=== PATIENT | female | born 1965 | race African-American/Black ===

== ENCOUNTER 2023-03-27 13:09 | Emergency (ER) | payer OTHER ==
[~2023-03-27] VITALS: Ht 154.9 cm; Wt 75.7 kg
[2023-03-27] MEDS ORDERED: METF-839 PO ×2 (13:19→15:38)
[2023-03-27] MEDS ORDERED: IBUP-1114 PO (13:19)
[2023-03-27 14:31] LABS: BASO % 0.5 % (0.0-1.0); EOS # 0.2 10^3/uL (0.0-0.5); EOS % 2.5 % (0.0-3.0); HEMATOCRIT 43.6 % (36.0-47.0); HEMOGLOBIN 13.4 g/dl (12.0-15.5); LYMPH # 3.3 10^3/uL (1.5-5.0); LYMPH % 37.2 % (24.0-44.0); MEAN CORPUSCULAR HEMOGLOBIN 25.3 pg (27.0-33.0); MEAN CORPUSCULAR HGB CONC 30.7 g/dl (32.0-36.5); MEAN CORPUSCULAR VOLUME 82.3 fl (80.0-96.0); MONO # 0.6 10^3/uL (0.0-0.8); MONO % 6.6 % (2.0-8.0); NEUTROPHILS # 4.7 10^3/uL (1.5-8.5); PLATELET COUNT, AUTOMATED 315 10^3/uL (150-450); WHITE BLOOD COUNT 8.8 10^3/uL (4.0-10.0)
[2023-03-27 14:38] LABS: ERYTHROCYTE SEDIMENTATION RATE 115 mm/hr (0-30)
[2023-03-27] MEDS ORDERED: ISOVUE-370 76% 100ML VIAL As Ordered ONE (16:13)
[2023-03-27] MEDS ORDERED: AMOX875T2 PO (17:29)
[2023-03-27 17:40] VITALS: BP 149/70; TEMP 97.4; O2SAT 99
== END 2023-03-27 17:42 | disposition home or self-care (01) ==
LOC: M ED 13:09
DX: K04.7 Periapical abscess without sinus (principal); E11.9 Type 2 diabetes mellitus without complications
CPT/HCPCS: 36415; 70487; 80047; 85025; 85652; 86140; 99284; Q9967

== ENCOUNTER 2023-03-31 08:33 | Emergency (ER) | payer OTHER ==
[~2023-03-31] VITALS: Ht 154.9 cm; Wt 73.9 kg
[~2023-03-31 08:33] MED LIST: AMOX875T2 PO; IBUP-1114 PO; METF-839 PO
[2023-03-31 13:02] LABS: BASO % 0.5 % (0.0-1.0); EOS # 0.3 10^3/uL (0.0-0.5); EOS % 3.9 % (0.0-3.0); HEMATOCRIT 42.6 % (36.0-47.0); HEMOGLOBIN 13.5 g/dl (12.0-15.5); LYMPH # 2.8 10^3/uL (1.5-5.0); MEAN CORPUSCULAR HEMOGLOBIN 25.9 pg (27.0-33.0); MEAN CORPUSCULAR HGB CONC 31.7 g/dl (32.0-36.5); MEAN CORPUSCULAR VOLUME 81.6 fl (80.0-96.0); MONO # 0.5 10^3/uL (0.0-0.8); MONO % 6.7 % (2.0-8.0); NEUTROPHILS # 4.4 10^3/uL (1.5-8.5); NEUTROPHILS % 54.7 % (36.0-66.0); PLATELET COUNT, AUTOMATED 342 10^3/uL (150-450); RED BLOOD COUNT 5.22 10^6/uL (4.00-5.40); WHITE BLOOD COUNT 8.1 10^3/uL (4.0-10.0)
[2023-03-31 14:40] VITALS: BP 149/77; TEMP 97.5; O2SAT 98
[2023-03-31 14:50] LABS: CHLAMYDIA DNA AMPLIFICATION NEGATIVE (NEGATIVE); GC DNA AMPLIFICATION NEGATIVE (NEGATIVE)
== END 2023-03-31 15:01 | disposition home or self-care (01) ==
LOC: M ED 08:33
DX: N21.1 Calculus in urethra (principal)

== ENCOUNTER 2023-09-30 18:40 | Emergency (ER) | payer OTHER ==
[~2023-09-30] VITALS: Ht 154.9 cm; Wt 71.9 kg
[2023-09-30] MEDS ORDERED: ESSETAB4 PO (19:04)
[2023-09-30] MEDS ORDERED: ROSU5TAB40 (19:04)
[2023-09-30] MEDS ORDERED: CINN500C15 PO (19:04)
[2023-09-30] MEDS ORDERED: TRIPCAP5 PO (19:04)
[2023-09-30 19:18] LABS: BASO # 0.1 10^3/uL (0.0-0.2); BASO % 0.9 % (0.0-1.0); EOS # 0.3 10^3/uL (0.0-0.5); EOS % 3.1 % (0.0-3.0); HEMATOCRIT 44.2 % (36.0-47.0); HEMOGLOBIN 14.1 g/dl (12.0-15.5); LYMPH # 4.3 10^3/uL (1.5-5.0); LYMPH % 46.9 % (24.0-44.0); MEAN CORPUSCULAR HEMOGLOBIN 26.3 pg (27.0-33.0); MEAN CORPUSCULAR HGB CONC 31.9 g/dl (32.0-36.5); MEAN CORPUSCULAR VOLUME 82.3 fl (80.0-96.0); MONO # 0.7 10^3/uL (0.0-0.8); MONO % 7.7 % (2.0-8.0); NEUTROPHILS # 3.8 10^3/uL (1.5-8.5); NEUTROPHILS % 41.2 % (36.0-66.0); PLATELET COUNT, AUTOMATED 281 10^3/uL (150-450); RED BLOOD COUNT 5.37 10^6/uL (4.00-5.40); WHITE BLOOD COUNT 9.1 10^3/uL (4.0-10.0)
[2023-09-30 19:30] LABS: INR 1.03; PARTIAL THROMBOPLASTIN TIME 25.6 SECONDS (24.8-34.2); PROTHROMBIN TIME 13.2 SECONDS (12.5-14.5)
[2023-09-30 19:46] LABS: CK-MB VALUE MASS 2.7 NG/ML (<3.6); LIPASE 33 U/L (12-53)
[2023-09-30 19:48] LABS: ALBUMIN 3.9 G/DL (3.2-5.2); ALKALINE PHOSPHATASE 78 U/L (46-116); ALT/SGPT 18 U/L (7.0-40); AST/SGOT 10 U/L (<34); BILIRUBIN,DIRECT 0.1 MG/DL (<0.4); BILIRUBIN,TOTAL 0.5 MG/DL (0.3-1.2); BLOOD UREA NITROGEN 19 MG/DL (9-23); CALCIUM LEVEL 9.9 MG/DL (8.5-10.1); CARBON DIOXIDE LEVEL 31 MMOL/L (20-31); CHLORIDE LEVEL 103 MMOL/L (98-107); CREATININE FOR GFR 0.61 MG/DL (0.55-1.30); GLOMERULAR FILTRATION RATE > 60.0 (>51); GLUCOSE, FASTING 141 MG/DL (60-100); POTASSIUM SERUM 4.5 MMOL/L (3.5-5.1); SODIUM LEVEL 140 MMOL/L (136-145); TOTAL PROTEIN 8.2 G/DL (5.7-8.2)
[2023-09-30 19:50] LABS: FREE T4 1.03 NG/DL (0.89-1.76); THYROID STIMULATING HORMONE 2.447 uIU/ML (0.55-4.78)
[2023-09-30 19:54] LABS: CPK CREATINE PHOSPHOKINASE 242 U/L (34-145); MB/CK RELATIVE INDEX 1.11 (< OR =4)
[2023-09-30 22:12] LABS: CK-MB VALUE MASS 2.7 NG/ML (<3.6)
[2023-09-30 22:14] LABS: MB/CK RELATIVE INDEX 1.19 (< OR =4)
[2023-10-01] MEDS: KETOROLAC 30 MG/ML 1ML VIAL IV ONE (00:30)
[2023-10-01] MEDS ORDERED: ISOVUE-370 76% 100ML VIAL As Ordered ONE (00:49)
[2023-10-01 01:44] VITALS: BP 140/76; TEMP 98.8; O2SAT 100
== END 2023-10-01 01:48 | disposition home or self-care (01) ==
LOC: M ED 18:40
DX: R07.9 Chest pain, unspecified (principal); E11.9 Type 2 diabetes mellitus without complications; E78.5 Hyperlipidemia, unspecified; R94.31 Abnormal electrocardiogram [ECG] [EKG]; I25.2 Old myocardial infarction; Z79.84 Long term (current) use of oral hypoglycemic drugs; Z79.810 Long term (current) use of selective estrogen receptor modulators (SERMs)
CPT/HCPCS: 71045; 71275; 80048; 80076; 82550; 82553; 83690; 83880; 84439; 84443; 84484; 85025; 85610; 85730; 93005; 93041; 94760; 96374; 99285; J1885; Q9967

== ENCOUNTER 2023-12-06 06:41 | Day surgery (SDC) | payer OTHER ==
[~2023-12-06] VITALS: Ht 154.9 cm; Wt 68.9 kg
[~2023-12-06 06:41] MED LIST changes: +CINN500C15 PO; +ESSETAB4 PO; +JARD1TAB3 PO; +ROSU5TAB40 PO; +TRIPCAP5 PO
[2023-12-06] MEDS ORDERED: propofoL 200 MG/20 ML VIAL As Ordered ONE (06:49)
[2023-12-06] MEDS: NS 1,000 ML IV ONE (07:13)
[2023-12-06 08:20] VITALS: BP 110/71; TEMP 96.6; O2SAT 98
== END 2023-12-06 08:29 | disposition home or self-care (01) ==
LOC: M OPP 06:41
PROVIDERS: ATTEND Internal Medicine Gastroenterology
DX: K64.8 Other hemorrhoids (principal); K57.30 Diverticulosis of large intestine without perforation or abscess without bleeding; K92.1 Melena; E11.9 Type 2 diabetes mellitus without complications; Z79.02 Long term (current) use of antithrombotics/antiplatelets

== ENCOUNTER 2023-12-19 23:43 | Emergency (ER) | payer OTHER ==
[~2023-12-19] VITALS: Ht 154.9 cm; Wt 72.2 kg
[2023-12-20 00:48] LABS: HEMATOCRIT 39.4 % (36.0-47.0); HEMOGLOBIN 12.5 g/dl (12.0-15.5); MEAN CORPUSCULAR HEMOGLOBIN 26.5 pg (27.0-33.0); MEAN CORPUSCULAR HGB CONC 31.7 g/dl (32.0-36.5); MEAN CORPUSCULAR VOLUME 83.7 fl (80.0-96.0); PLATELET COUNT, AUTOMATED 190 10^3/uL (150-450); RED BLOOD COUNT 4.71 10^6/uL (4.00-5.40); WHITE BLOOD COUNT 5.4 10^3/uL (4.0-10.0)
[2023-12-20] MEDS: CALCIUM CARBONATE 500 MG CHEW U/D PO ONE (00:51)
[2023-12-20 01:12] LABS: LIPASE 46 U/L (12-53)
[2023-12-20 01:13] LABS: CPK CREATINE PHOSPHOKINASE 251 U/L (34-145)
[2023-12-20 01:14] LABS: ALBUMIN 3.6 G/DL (3.2-5.2); ALKALINE PHOSPHATASE 67 U/L (46-116); ALT/SGPT 19 U/L (7.0-40); AST/SGOT 15 U/L (<34); BILIRUBIN,DIRECT < 0.1 MG/DL (<0.4); BILIRUBIN,TOTAL 0.3 MG/DL (0.3-1.2); BLOOD UREA NITROGEN 16 MG/DL (9-23); CALCIUM LEVEL 9.1 MG/DL (8.5-10.1); CARBON DIOXIDE LEVEL 30 MMOL/L (20-31); CHLORIDE LEVEL 103 MMOL/L (98-107); CK-MB VALUE MASS 1.8 NG/ML (<3.6); CREATININE FOR GFR 0.57 MG/DL (0.55-1.30); GLOMERULAR FILTRATION RATE > 60.0 (>51); GLUCOSE, FASTING 210 MG/DL (60-100); MB/CK RELATIVE INDEX 0.71 (< OR =4); POTASSIUM SERUM 4.2 MMOL/L (3.5-5.1); SODIUM LEVEL 136 MMOL/L (136-145); TOTAL PROTEIN 7.4 G/DL (5.7-8.2)
[2023-12-20] MEDS ORDERED: PROT1TAB2 PO (01:26)
[2023-12-20 02:00] LABS: ATYPICAL LYMPH 16 % (0-5); EOSINOPHILS 4 % (0-3); LYMPHOCYTES 34 % (16-44); MONOCYTES 15 % (0-5); NEUTROPHILS 28 % (28-66); NUCLEATED RED BLOOD CELL 14 % (0-0); PLATELET ESTIMATE DECREASED (NORMAL)
[2023-12-20 02:41] LABS: MONO REFLEX EBV COMP NEGATIVE (NEGATIVE)
[2023-12-20 02:51] LABS: CK-MB VALUE MASS 1.7 NG/ML (<3.6)
[2023-12-20 02:52] LABS: MB/CK RELATIVE INDEX 0.7 (< OR =4)
[2023-12-20] MEDS: PANTOPRAZOLE 40MG VIAL IV ONE (03:00)
[2023-12-20 03:30] VITALS: BP 118/68; TEMP 97.4; O2SAT 99
[2023-12-21] MEDS ORDERED: METF500T13 (14:01)
[2023-12-21] MEDS ORDERED: BENA25CA4 PO (19:38)
[2023-12-21] MEDS ORDERED: PEPC1TAB5 PO (19:38)
[2023-12-21] MEDS ORDERED: PRED20TA PO (19:38)
[2023-12-22 11:58] LABS: EBV AB TO NUCLEAR ANTIGEN > 600.00 U/mL (<18.00); EBV VIRAL CAPSID AG IGG > 750.00 U/mL (<18.00)
== END 2023-12-20 03:41 | disposition home or self-care (01) ==
LOC: M ED 23:43
DX: K21.9 Gastro-esophageal reflux disease without esophagitis (principal); E11.9 Type 2 diabetes mellitus without complications; E78.5 Hyperlipidemia, unspecified; K57.30 Diverticulosis of large intestine without perforation or abscess without bleeding; K64.9 Unspecified hemorrhoids
CPT/HCPCS: 71045; 76705; 80048; 80076; 82550; 82553; 83690; 83880; 84484; 85025; 86308; 86664; 86665; 93005; 93041; 94760; 96374; 99284; J2470

== ENCOUNTER 2023-12-21 13:45 | Emergency (ER) | payer OTHER ==
[~2023-12-21] VITALS: Ht 154.9 cm; Wt 69.9 kg
[~2023-12-21 13:45] MED LIST changes: +PROT1TAB2 PO
[2023-12-21] MEDS ORDERED: METF500T13 (14:01)
[2023-12-21] MEDS: methylPREDNISolone 125MG 2ML VIAL IV ONE (14:13)
[2023-12-21] MEDS: FAMOTIDINE 20MG/2ML VIAL IVP ONE (14:13)
[2023-12-21] MEDS: EPINEPHrine INJ 1 MG/ML 1ML AMP IM STA (14:13)
[2023-12-21] MEDS: diphenhydrAMINE 50MG/ML VIAL IV ONE (14:13)
[2023-12-21] MEDS: CETIRIZINE (ZyrTEC) 10 MG TAB PO ONE (17:24)
[2023-12-21 18:45] VITALS: TEMP 97.7
[2023-12-21] MEDS ORDERED: BENA25CA4 PO (19:38)
[2023-12-21] MEDS ORDERED: PRED20TA PO (19:38)
[2023-12-21] MEDS ORDERED: PEPC1TAB5 PO (19:38)
[2023-12-21 19:50] VITALS: BP 127/76; O2SAT 99
== END 2023-12-21 20:09 | disposition home or self-care (01) ==
LOC: M ED 13:45
DX: T78.2XXA Anaphylactic shock, unspecified, initial encounter (principal); R22.0 Localized swelling, mass and lump, head; K21.9 Gastro-esophageal reflux disease without esophagitis; E11.9 Type 2 diabetes mellitus without complications; Z79.52 Long term (current) use of systemic steroids; Z79.899 Other long term (current) drug therapy
CPT/HCPCS: 93041; 94760; 96372; 96374; 99284; J0171; J1200; J2919; S0028